=== PATIENT | male | born 2000 | race Caucasian/White ===

== ENCOUNTER 2023-08-14 12:34 | Outpatient (CLI) | payer OTHER ==
--- NOTE | 2023-08-14 13:16 | Sleep Patient Instructions ---
Sleep Center Visit Summary - Patient Visit Information Reason for Visit: Initial consult for evaluation of sleep disordered breathing and other sleep issues. - Patient Instructions Instructions Attached: Sleep Study, Sleep Study Home Monitor Additional Instructions: You will be completing a sleep study, either an in-lab polysomnography (PSG) or home sleep study (HST). You will follow-up in the sleep care office after the sleep study is completed to hear the results and talk about therapy, if needed. You will be called by our office staff to schedule this appointment, but you may contact us with any questions. - Clinic Information Contact: [facility] [address] [place] [id number] [email or web address] T: [phone]
--- NOTE | 2023-08-14 13:21 | SLEEP CARE CONSULTATION ---
Information from patient questionnaire entered by Tabitha Frances. I have reviewed and concur with the information entered by Tabitha Frances. This document represents the service I personally performed and the decisions made by me, Nita Soni ARNP. History of Present Illness Service Date and Time: 08/14/2023 1234 Reason for Visit: New patient Chief Complaint: reports: Insomnia, Unrefreshed sleep, Snoring, Observed pauses in breathing, Fatigue Date of Onset: MULTIPLE YRS Usual bedtime: 9PM Time it takes to fall asleep: 3-4HRS Snores at night: Yes Observed to quit breathing while asleep: Yes Sleeps alone due to snoring: No Number of times waking at night: 1-2 Reasons for waking at night: reports: Snoring, Gasping for air (sometimes), Other (UNKNOWN ). denies: Choking Toss, Turn, or Twitch while sleeping: Yes Recalls having dreams: Yes Usually gets out of bed at: 5AM Feels refreshed in the morning: No Morning headache: Yes (3-4 times a week; 7 BUDDHISM) Sleepy or fatigued during the day: Yes Ever fallen asleep while driving: No Takes day naps: Yes (try not to nap; occasional unintentional naps) Dreams during day naps: No Prior sleep studies: No Additional HPI information: I had the pleasure of seeing GIL JARA today regarding the possibility of him having a sleep disorder. His current complaints are insomnia, unrefreshed sleep, snoring, observed pauses in breathing and fatigue. He says he has not got a consistent night sleep for many years and some nights he does not sleep. He says he lays down at 9 PM but it can take 3-4 hours to fall asleep. He has tried melatonin but it did not help much to go to sleep. He tried shower before bed and avoid electronics an hour before bed. He eats about 6 pm and only water the rest of night. He has caffeine drink in morning before work. He does not wake up feeling refreshed. About 3-4 days a week he wakes up with headaches that resolve around 7 AM. - Parasomnia Symptoms Ever been unable to move upon waking from sleep: Yes (rare occurance) Walks in sleep: No Talks in sleep: Yes Ever acted out dreams in sleep: No Ever felt weak in the knees when startled or emotional: No Bothered by creepy, crawly, restless sensations in legs: Yes (infrequent, feels like have to move legs, "nagging feeling in head") Problems with memory or concentration: No Subjective Initial [place] Sleepiness Scale score: 6 (07/30/23) Past Medical History Past Medical History: reports: Dysphagia, Anxiety, Asthma, Other (migraines) Social History The patient's occupation is a AM. Patient is and lives in . Have you smoked in the past 12 months: No Alcohol use: Yes Alcohol amount and frequency: 1-2 DRINKS LESS THAN MONTHLY Caffeine use: Yes Caffeine amount and frequency: 2 ADAY DAILY IN THE MORNING Family History Family history of sleep disordered breathing: Yes Family Hx Sleep Apnea: Father: Snoring Allergies and Home Medications Known drug allergies: No Drug allergies reviewed: Yes Home medication list reviewed: Yes Allergy and home medication list: Allergies No Known Drug Allergies Allergy (Verified 08/10/23 11:37) Home Medications Medication Instructions Recorded Confirmed Last Taken Type Fluticasone/Salmeterol [Advair See Rx Instructions .ROUTE .COMPLEX 08/10/23 08/14/23 Unknown History 100-50 Diskus] Meloxicam See Rx Instructions .ROUTE .COMPLEX 08/10/23 08/14/23 Unknown History Sumatriptan Inj [Imitrex Inj] See Rx Instructions .ROUTE .COMPLEX 08/10/23 08/14/23 Unknown History Multivitamin See Rx Instructions .ROUTE .COMPLEX 08/14/23 08/14/23 Unknown History Review of Systems Weight gain over past 5 years: 38 Cardiovascular: denies: high blood pressure Respiratory: reports: shortness of breath, wheeze, chronic cough Gastrointestinal: reports: difficulty swallowing Neurological: reports: headaches Ear/Nose/Throat: reports: wisdom teeth removed. denies: tonsillectomy Musculoskeletal: reports: joint pain, neck pain, back pain, joint swelling Immunologic: reports: allergies to food or environment Physical Exam Vital signs obtained and entered by: TABITHA Mann MA Blood Pressure: 123/63 (RIGHT ARM) Cuff size: regular Heart Rate: 76 O2 Saturation: 97 Height: 5 ft 9 in Weight: 216 lb 6.4 oz Body Mass Index: 31.9 BMI Classification: Obese Neck circumference: 16.5 Mouth and throat: narrow oropharynx Soft palate: long Hard palate: normal Uvula: normal Uvula visualization: 50% Mallampati Class II Tongue: enlarged in size with teeth maradiaga on lateral edges Tonsils: 1+ Neck: normal w/o lymphadenopathy or thyromegaly Heart: regular rate and rhythm Lungs: clear bilaterally Impression and Plan 1. Suspected Obstructive Sleep Apnea-Hypopnea Syndrome, as suggested by a history of loud and irregular snoring, observed cessation of breath while asleep, morning headache, frequent awakening during the night and unrefreshed sleep. Narrow oropharynx and obesity are common predisposing factors for obstructive sleep apnea-hypopnea syndrome. I recommend proceeding to polysomnography to confirm the diagnosis and to assess severity. If the patient has significant sleep disordered breathing, a manual CPAP titration study will also be performed to find the optimal treatment pressure. I informed the patient of what the sleep studies involve and after some discussion, obtained agreement to proceed. The pathophysiology of obstructive sleep apnea-hypopnea syndrome was discussed with the patient and health risks of cardiovascular and cerebrovascular disease if not treated. Risks of drowsy driving discussed in detail and patient advised to avoid long distance driving and to date puller at the first sign of drowsiness. Patient agreed to plan. * Schedule polysomnography. * Avoid long distance driving or driving when feeling sleepy. * Avoid alcohol, sedative and muscle relaxant around bedtime. * Attempt to lose weight. * Review instructions provided by trained office staff on how to prepare for the sleep study. * Return for follow-up after sleep study completed. Counseling Topics: Weight loss health impact Plan: PSG/HST Visit Type: In Office Time Spent with Patient (minutes): 30 Provider Statement: I spent 100% of the Face to Face Visit with the patient with greater than 50% spent counseling the patient and coordination of care.
[2023-08-14 13:28] VITALS: BP 123/63; O2SAT 97
== END 2023-08-14 12:35 | disposition home or self-care (01) ==
LOC: SC 12:34
PROVIDERS: ATTEND Nurse Practitioner Family
DX: R06.81 Apnea, not elsewhere classified (principal); R51.9 Headache, unspecified; G47.8 Other sleep disorders; R06.83 Snoring; G47.00 Insomnia, unspecified
CPT/HCPCS: 99203; 99212

== ENCOUNTER 2023-10-23 08:24 | Outpatient (CLI) | payer OTHER | END 2023-10-23 08:25 | disposition home or self-care (01) | LOC: SC 08:24 | PROVIDERS: ATTEND Nurse Practitioner Family | DX: R09.02 Hypoxemia (principal); R00.0 Tachycardia, unspecified | CPT/HCPCS: 95806 ==

== ENCOUNTER 2023-11-20 08:58 | Outpatient (CLI) | payer OTHER ==
--- NOTE | 2023-11-20 09:43 | Sleep Patient Instructions ---
Sleep Center Visit Summary - Patient Visit Information Reason for Visit: Sleep study follow-up - Patient Instructions Additional Instructions: Your sleep study today was negative for significant sleep disordered breathing. However, you did have elevated respiratory episodes when sleeping on your back. You should avoid sleeping on your back to control these respiratory episodes. Follow-up as needed. - Clinic Information Contact: [facility] [address] [place] [address] [email or web address] T: [phone]
--- NOTE | 2023-11-20 09:47 | SLEEP CARE CONSULTATION ---
Information from patient questionnaire entered by Suzan Frances. I have reviewed and concur with the information entered by Suzan Frances. This document represents the service I personally performed and the decisions made by , Nita Soni ARNP. History of Present Illness Service Date and Time: 11/20/2023 0858 Initial [place] Sleepiness Scale score: 6 (07/30/23) Current [place] Sleepiness Scale score: 10 (11/20/23) Additional HPI information: GIL JARA returns for follow up and results of the recently performed home sleep study. No significant sleep disordered breathing with an average AHI of 3.7 and maría oxygen saturation of 84%. His supine AHI was elevated at 5.3. There was also some noted tachycardia which may have been artifact. The patient was informed of the following findings: I explained the pathophysiology behind obstructive sleep apnea. Patient does not have sleep apnea and was advised how weight gain could increase the risk of developing sleep apnea in the future. I strongly encouraged the patient to lose weight. Patient does not have significant sleep disordered breathing but has elevated AHI in supine position so advised positional therapy. Methods to achieve positional management therapy were discussed; such as, positioning with pillows, wearing a T-shirt with tennis balls sewn into the back or commercially available products. Patient does not drink alcohol. Patient was cautioned about risks of drowsy driving until sleepiness symptoms resolve. Sleep Study - Results Type of Sleep Study: Home sleep study (COMPLETED 10/23/23) Prior sleep studies: No Polysomnography/Home Sleep Study results: Physician Impression: The quality of the study is good. The length of the study is adequate (> 240 minutes). Please also see the tabulated and graphic data. 1. No significant sleep disordered breathing, with an AHI of 3.7/hr and maría SaO2 of 84%. During the study, the patient had 18 apneas (18 obstructive, 0 central, 0 mixed) and 5 hypopneas. The longest episode lasted 79.5 seconds. The few respiratory events occurred almost exclusively during supine sleep (supine AHI was 5.3 and non-supine, 1.23). 2. Hypoxemia (ICD-10 R09.02), minimal, with the lowest oxygen saturation of 84 % and 0.2 minutes with SaO2 under 90%. Baseline oxygen saturation was normal (Average oxygen saturation was 96%). 3. Tachycardia, with maximum recorded heart rate of 255 beats per minute, most likely an artifact. Allergies and Home Medications Known drug allergies: No Drug allergies reviewed: Yes Home medication list reviewed: Yes (no changes) Allergy and home medication list: Allergies No Known Drug Allergies Allergy (Verified 08/14/23 12:57) Review of Systems Review of systems same as previous: Yes (NO CHANGE) Physical Exam Vital signs obtained and entered by: SUZAN Mann MA Blood Pressure: 120/71 (RIGHT ARM) Cuff size: regular Heart Rate: 83 O2 Saturation: 97 Height: 5 ft 9 in Weight: 220 lb 9.6 oz Body Mass Index: 32.5 BMI Classification: Obese Impression and Plan 1. Insomnia, unspecified. He continues to have sleep onset insomnia. He is moving in 2 weeks out of state. I advised him to follow up with some one there for his sleep issues if things do not improve or worsen. He voiced understanding. Insomnia is generally caused by an irregular sleep schedule, spending too much time in bed, napping, caffeine, electronics, lack of a relaxing bedtime ritual and clock watching. Other factors can include anxiety/depression, pain, medications, and obstructive sleep apnea. [facility] pamphlet on Understanding Insomnia given and explained to patient. 2. No significant sleep disordered breathing, however, supine AHI was minimally elevated at 5.3 and patient should avoid sleeping supine. Patient advised that often weight loss will reduce apnea risk. Methods discussed such as positioning with pillows, using a T-shirt with tennis balls in the back or commercial products that have a pillow format on back to prevent supine sleep. Patient voiced understanding. 3. Obesity, unspecified. Currently patients BMI is 32.5. Obesity increases the risk of apnea, CPAP pressure requirements and overall health risks especially cardiovascular and diabetes. Thus patient is advised to lose weight. * Complete 2 week sleep diary * Attempt to lose weight * The patient is cautioned about driving until sleepiness is completely resolved. * Return as needed for follow up. Follow up with Sleep Care in: as needed Visit Type: In Office Time Spent with Patient (minutes): 13 Provider Statement: I spent 100% of the Face to Face Visit with the patient with greater than 50% spent counseling the patient and coordination of care.
[2023-11-20 09:48] VITALS: BP 120/71; O2SAT 97
== END 2023-11-20 08:59 | disposition home or self-care (01) ==
LOC: SC 08:58
PROVIDERS: ATTEND Nurse Practitioner Family
DX: G47.00 Insomnia, unspecified (principal); E66.9 Obesity, unspecified; Z68.32 Body mass index [BMI] 32.0-32.9, adult
CPT/HCPCS: 99212